=== PATIENT | male | born 1980 | race Caucasian/White ===

== ENCOUNTER 2019-01-16 07:51 | Emergency (ER) | payer MEDICARE, MEDICAID ==
[~2019-01-16] VITALS: Ht 162.6 cm; Wt 56.8 kg
[2019-01-16 08:04] VITALS: Ht 162.6 cm; Wt 56.8 kg
[2019-01-16] MEDS ORDERED: SULFAMETHOXAZOL1 TA3 PO (08:34)
[2019-01-16 08:43] VITALS: BP 105/69
== END 2019-01-16 08:43 | disposition home or self-care (01) ==
LOC: D.ER 07:51
DX: L02.416 Cutaneous abscess of left lower limb (principal)